=== PATIENT | male | born 1960 | race Caucasian/White ===

== ENCOUNTER 2017-01-21 03:57 | Emergency (ER) | payer SELFPAY ==
[~2017-01-21] VITALS: Ht 180.3 cm; Wt 85.6 kg
[2017-01-21] MEDS ORDERED: SODIUM CHLORIDE FLUSH 10ML SYR IVF ONE (05:00)
[2017-01-21 05:19] LABS: BLOOD UREA NITROGEN 19 mg/dL (7-18)
[2017-01-21 05:21] LABS: HEMATOCRIT 45.2 % (39.2-51.8); HEMOGLOBIN 15.3 g/dL (13.7-18.0); WHITE BLOOD COUNT 6.2 x10^3/uL (3.4-10)
[2017-01-21] MEDS ORDERED: ONDANSETRON ODT 4 MG PO ONE (07:00)
[2017-01-21] MEDS ORDERED: KETOROLAC 30 MG/1 ML IM ONE (07:00)
[2017-01-21] MEDS ORDERED: OXYcodone/APAP 5/325MG TABLET PO ONE (07:00)
[2017-01-21] MEDS ORDERED: OXYcodone/APAP 5/325MG TABLET ONE (07:01)
[2017-01-21] MEDS ORDERED: KETOROLAC 30 MG/1 ML ONE (07:01)
[2017-01-21] MEDS ORDERED: ONDANSETRON ODT 4 MG ONE (07:01)
[2017-01-21 07:50] VITALS: BP 132/89
== END 2017-01-21 07:52 | disposition home or self-care (01) ==
LOC: ED 07:30
DX: N20.2 Calculus of kidney with calculus of ureter (principal); N20.0 Calculus of kidney
CPT/HCPCS: 36415; 74176; 80048; 81001; 82040; 85025; 96372; 99285; J1885; Q0162